=== PATIENT | male | born 1980 | race Caucasian/White ===

== ENCOUNTER 2018-03-24 19:24 | Emergency (ER) | payer OTHER ==
[2018-03-24] MEDS: METHYLPREDNISOLONE 125 MG INJ IM (20:36)
[2018-03-24] MEDS: DIPHENHYDRAMINE 50 MG INJ IM (20:36)
== END 2018-03-24 20:55 | disposition home or self-care (01) ==
LOC: FTE 19:24
DX: T78.1XXA Other adverse food reactions, not elsewhere classified, initial encounter (principal); R22.0 Localized swelling, mass and lump, head
CPT/HCPCS: 96372; 99284-25